=== PATIENT | male | born 1960 | race Caucasian/White ===

== ENCOUNTER 2017-10-06 09:03 | Emergency (ER) | payer MEDICAID ==
[~2017-10-06] VITALS: Ht 188 cm; Wt 77.6 kg
[2017-10-06 09:04] VITALS: BP 126/83
[2017-10-06] MEDS ORDERED: KETOROLAC 30 MG/1 ML ONE (09:55)
[2017-10-06] MEDS ORDERED: KETOROLAC 30 MG/1 ML IM ONE (10:00)
== END 2017-10-06 10:36 | disposition home or self-care (01) ==
LOC: ED 10:34
DX: M25.562 Pain in left knee (principal); G89.29 Other chronic pain; F17.210 Nicotine dependence, cigarettes, uncomplicated; Z59.0 Homelessness
CPT/HCPCS: 73564; 96372; 99284; J1885

== ENCOUNTER 2020-12-29 08:07 | Emergency (ER) | payer MEDICAID ==
[~2020-12-29] VITALS: Ht 188 cm; Wt 76.6 kg
--- NOTE | 2020-12-29 08:26 | NUR ---
PATIENT WALKED BACK FROM TRIAGE WITH CHIEF C/O OF LEFT KNEE PAIN. PATIENT STATES HE STEPPED OFF A CURB THIS MORNING AND STARTED HAVING PAIN IN HIS LEFT KNEE, SUBSIDED AFTER 5 MINUTES AND THEN CAME BACK. PATIENT WALKED "7 MILES TO GET HERE." PER PATIENT HE NEEDS A KNEE REPLACEMENT. MELVINN, CALL LIGHT WITHIN REACH.
[2020-12-29] MEDS ORDERED: KETOROLAC 30 MG/1 ML IM ONE (08:30)
[2020-12-29] MEDS ORDERED: KETOROLAC 30 MG/1 ML ONE (08:42)
--- NOTE | 2020-12-29 08:44 | NUR ---
PATIENT TO IMAGING.
--- NOTE | 2020-12-29 08:54 | NUR ---
PATIENT BACK FROM X-RAY, MEDICATED PER [facility]. WAITING FOR X-RAY RESULTS.
[2020-12-29 09:11] VITALS: BP 125/78
--- NOTE | 2020-12-29 09:50 | NUR ---
Patient given discharge instructions and prescription and they have confirmed that they understand the instructions. Bus pass provided to patient. Patient stable and ambulatory with steady gait from ED with all belongings.
== END 2020-12-29 09:51 | disposition home or self-care (01) ==
LOC: ED 09:21
DX: M25.562 Pain in left knee (principal); F17.210 Nicotine dependence, cigarettes, uncomplicated
CPT/HCPCS: 73564; 96372; 99283; J1885